=== PATIENT | male | born 1965 | race Caucasian/White ===

== ENCOUNTER 2017-04-16 11:51 | Day surgery (SDC) | payer OTHER ==
[~2017-04-16] VITALS: Ht 182.9 cm; Wt 82.9 kg
[2017-04-16 13:26] VITALS: Ht 182.9 cm; Wt 82.9 kg
[2017-04-16 14:42] VITALS: BP 156/100; PULSE 66; RESP 20
[2017-04-16] MEDS ORDERED: PROPOFOL 60 ML ONE (14:59)
[2017-04-16] MEDS ORDERED: LIDOCAINE 2% (SDV) 5 ML INJ ONE (14:59)
[2017-04-16 15:45] VITALS: BP 151/117; PULSE 80; RESP 20
--- NOTE | 2017-04-17 05:58 | GILP ---
DATE OF PROCEDURE: 04/16/2017 PROCEDURE: Colonoscopy with polyp ablation. BRIEF HISTORY AND INDICATIONS: The patient is being evaluated for family history of colon cancer. PREMEDICATION: Monitored anesthesia care by anesthesiologist. SURGEON: Tanner Egan MD INSTRUMENT USED: Olympus colonoscope. PREPARATION: Adequate. TECHNIQUE: After informed consent, with the patient/relatives understanding the procedure, its indic ations potential risks and complications, including but not limited to: allergic reaction, bleeding, perforation, infection, missed lesions and after all pertinent questions were answered to the patie nt's satisfaction, the patient/relatives signed the witnessed informed consent. Following this, premedication was administered slowly IV push by under careful cardiovascular and re spiratory monitoring with pulse oximetry, automatic blood pressure and business development analyst. Once the sedativ e effect was achieved, the patient was placed in the left lateral decubitus position, digital rectal examination was performed. The colonoscope was then introduced and advanced under visual control th roughout all segments of the colon including: the rectum, sigmoid, descending colon, splenic flexure , transverse colon, hepatic flexure, ascending colon and finally reaching the cecum which was clearl y identified by transillumination, finger indentation and the ileocecal valve. Careful examination o f the mucosa of the lower gastrointestinal tract both on insertion as well as withdrawal of the inst rument disclosed the following findings: Rectal Examination: No evidence of perirectal disease, no masses. Colonic Mucosa: The colonic mucosa is unremarkable with the exception of a 6 mm questionable sessil e polyp which is somewhat unusual in appearance and may represent thickened fold. The area was abla luz with biopsy forceps. The ileocecal valve was unremarkable. The instrument was then withdrawn. On withdrawal of the instrument, no additional abnormalities wer e noted with the exception of large internal hemorrhoids. The patient tolerated the procedure well and was transferred out of the [facility] awake and in good condition to continue recovery under observation. IMPRESSION: 1. Questionable 6 mm sessile polyp versus prominent fold, proximal transverse colon, ablated. 2. Large internal hemorrhoids. 3. Otherwise, normal colonoscopy to cecum. PLAN: Pathology will be reviewed as soon as available, and further recommendation will depend on th e clinical findings as well as histological findings. Surveillance colonoscopy in 5 years is recomm ended pending review of pathology. Dictated By: TANNER EGAN MS/MATTHEW Conf#: [id number] [facility]#: [id number]
== END 2017-04-16 16:22 | disposition home or self-care (01) ==
LOC: GIL 11:51
PROVIDERS: ATTEND Internal Medicine Gastroenterology
DX: Z12.11 Encounter for screening for malignant neoplasm of colon (principal); D12.3 Benign neoplasm of transverse colon; I10 Essential (primary) hypertension
CPT/HCPCS: 45380; 88305; Z7610